=== PATIENT | female | born 1975 | race Caucasian/White ===

== ENCOUNTER 2022-06-16 07:58 | Emergency (ER) | payer BC, SELFPAY ==
--- NOTE | ~2022-06-16 | CT_ITS ---
EXAMINATION: CT ABDOMEN AND PELVIS WITHOUT CONTRAST CLINICAL INFORMATION: Flank pain. COMPARISON: None TECHNIQUE: Multidetector volumetric imaging was performed from the superior aspect of the liver through the pubic symphysis. Sagittal and coronal reformatted images were obtained on the technologist's workstation. This CT examination was performed using dose optimization techniques as appropriate, variously including the following: *Automated exposure control *Adjustment of mA and/or kV according to patient size (this includes techniques or standardized protocols for targeted exams where dose is matched to indication/reason for exam; i.e. extremities or head) *Use of iterative reconstruction technique DLP: 1162 mGy-cm FINDINGS: LUNG BASES: The lung bases appear clear, with no evidence of inflammation or nodules. LIVER, GALLBLADDER, AND BILIARY TREE: The liver appears unremarkable in size, shape, and attenuation. No focal hepatic lesion or biliary ductal dilatation is appreciated. Unremarkable appearance of the gallbladder. PANCREAS: Unremarkable SPLEEN: Unremarkable ADRENAL GLANDS: Unremarkable KIDNEYS AND URETERS: The kidneys appear unremarkable in size, shape, and attenuation. 0.3 cm, nonobstructing left upper pole renal collecting system stone. No hydronephrosis, hydroureter, or right calculi seen. No significant perinephric stranding. BLADDER: Poorly distended, therefore suboptimally evaluated. Grossly unremarkable. GASTROINTESTINAL TRACT: Status post gastric sleeve. Small bowel appears unremarkable. Scattered colonic diverticula without evidence of diverticulitis. Normal-appearing distal ileum and vermiform appendix. ABDOMINAL WALL: No significant hernia is appreciated. LYMPH NODES: No evidence of adenopathy by size criteria. VASCULAR: Unremarkable PELVIC VISCERA: Unremarkable OSSEOUS STRUCTURES: Degenerative changes of the spine. CT/CT abdomen pelvis wo IV con IMPRESSION: No acute finding.
[2022-06-16 08:12] VITALS: PULSE 95; RESP 20; TEMP 35.3; O2SAT 98; BMI 36.6
--- NOTE | 2022-06-16 09:39 | ED_ITS ---
HPI - General Adult General Chief complaint: Back Pain/Injury Stated complaint: Lower back pain/L leg pain Time Seen by Provider: 06/16/22 09:39 Source: patient Mode of arrival: ambulatory Limitations: no limitations History of Present Illness HPI narrative: Cristel is a 46 year old female who presents with two days of left sided lower back pain radiating to her anterior thigh. She states it woke her up from sleep on Thursday night and has since progressed. She denies any trauma, strenuous exercise, or prior history of occurrence. She reports taking acetaminophen without relief. She denies provoking factors and reports a gradual progression of pain until current time. She denies any saddle parethesia, loss of bowel/bladder function, or abdominal symptomatology. She states her urine has been darker, but attributes it to not drinking enough water d/t pain. Onset (ago): day(s) (2) Location: back Radiation: distal (left anterior thigh) Severity: moderate Severity scale (1-10): 4 Quality: other (shooting) Pain Consistency: constant Relieving factors: none Exacerbating factors: none Associated symptoms: denies other symptoms Treatments prior to arrival: other (acetaminophen) Related Data Previous Rx's Medication Instructions Recorded hydrocodone 5 mg-acetaminophen 325 1 tab PO Q6H #7 tabs 06/16/22 mg tablet tamsulosin 0.4 mg capsule 0.4 mg PO DAILY #7 caps 06/16/22 Allergies Allergy/AdvReac Type Severity Reaction Status Date / Time latex Allergy Unknown Verified 06/16/22 08:11 Review of Systems Constitutional: Constitutional: Reports no additional constitutional complaints, Denies chills, Denies fever(s) and Denies night sweats Eyes: Eyes: Reports no additional eye complaints, Denies blurry vision, Denies change in vision, Denies diplopia, Denies eye discharge, Denies loss of vision and Denies eye pain ENT: Denies dizziness Cardiovascular: Cardiovascular: Reports no additional cardiovascular complaints, Denies chest pain, Denies lightheadedness, Denies Loss of Consciousness and Denies dyspnea Respiratory: Respiratory: Reports no additional respiratory complaints and Denies dyspnea Gastrointestinal: Gastrointestinal: Reports no additional gastrointestinal complaints, Denies abdominal pain, Denies melena, Denies hematochezia, Denies change in bowel habits and Denies change in stool character Genitourinary: Genitourinary: Denies hematuria, Denies urinary frequency, Denies dysuria, Denies urinary incontinence, Denies urinary hesitancy and Denies urinary urgency Musculoskeletal: Musculoskeletal: Reports no additional musculoskeletal complaints, Reports back pain, Denies numbness, Reports radiating pain into limb (left anterior thigh) and Denies tingling Neurologic: Denies dizziness, Denies loss of vision, Denies numbness and Denies tingling Comments: denies saddle paresthesia, loss or bowel/bladder Psychiatric: Psychiatric: Reports no additional psychiatric complaints Endocrine: Endocrine: Reports no additional endocrine complaints Hematologic/Lymphatic: Hematologic/Lymphatic: Reports no additional hematolog ic/lymphatic complaints Allergic/Immunologic: Allergic/Immunologic: Reports no additional allergic/immunologic complaints [facility] Past Medical History Attestation statement: The following information was validated with the patient. Source: old records reviewed and nursing notes reviewed Social History Social History Advance Directives: Yes Advance Directives Information Provided: Yes Advance Directives on File: No Physical Exam ED Vital Signs: Vital Signs - 24 hr 06/16/22 08:12 Temperature 95.5 F L Pulse Rate 95 Respiratory Rate 20 Pulse Oximetry 98 Oxygen Delivery Method Room Air BMI result Body Mass Index 36.6 Const General: cooperative, no acute distress, alert and awake Nutritional Appearance: well nourished and overweight Orientation/consciousness: patient oriented x3 Limitations: no limitations HENMT Head: Yes normal to inspection and Yes atraumatic Ears: hearing grossly normal bilaterally and external ears normal General nose exam: Normal external nose present, no nasal discharge noted and no epistaxis Face and sinus: Yes normal facial exam, No abrasion and No laceration Mouth: Normal oral and palatal mucosa present, no drooling and no muffled voice Eyes General: appearance normal, both eyes and all related structures Periorbital: periorbital findings normal Eyelids: Yes eyelids normal Conjunctivae: conjunctivae normal Pupils: Equal, round and reactive pupils present EOM: EOMs intact bilaterally Neck Neck: Yes normal visual inspection, Yes full ROM and Yes no lymphadenopathy Chest Chest palpation & inspection: normal inspection of the chest Resp Effort & Inspection: normal respiratory effort and able to speak in complete sentences Auscultation: clear to auscultation bilaterally Cardio Palpation: normal PMI Rate: regular rate Rhythm: regular rhythm Heart sounds: S1 normal heart sound present and S2 normal heart sound present GI Inspection: Yes normal to inspection Palpation (GI): Soft to palpation General: Yes CVA tenderness on the left Back/Spine/Pelvis Back: CVA tenderness Thoracic/Lumbar Spine: thoracic and lumbar spine normal to inspection Skin General skin exam: no rashes or lesions noted Neuro General: patient oriented x3, gait normal, tone normal, moves all extremities and no focal motor deficits Cranial nerves: Yes Equal, round and reactive pupils present Cognition (Neuro): normal cognition Gait exam (Neuro): Normal gait present Motor exam (neuro): 5/5 motor strength present throughout and Normal motor muscle tone present throughout Sensory Exam: Normal double simultaneous stimulation for sensation Coordination: [id number] test normal Extrem General: Yes normal to inspection, Yes full ROM and Yes capillary refill normal Psych Appearance: grossly normal Mental Status: mental status grossly normal Affect: normal affect Attitude: cooperative Thought process: Normal thought process present Thought content: Normal thought content present Insight: Good insight present (Psych) Medications Administered Discontinued Medications Generic Name Dose Route Start Last Admin Trade Name Lisa PRN Reason Stop Dose Admin Hydromorphone HCl 1 mg 06/16/22 10:22 06/16/22 10:35 Hydromorphone Hcl 1 Mg/Ml Syringe IVPUSH 06/16/22 10:23 1 mg ONCE ONE Administration Protocol Ondansetron HCl 4 mg 06/16/22 10:22 06/16/22 10:35 Ondansetron Hcl 4 Mg/2 Ml Vial IVPUSH 06/16/22 10:23 4 mg ONCE ONE Administration Medical Decision Making Medical Decision Making [facility] Narrative: Patient is a 46 year old assigned female at with a history of recent gastric sleeve surgery presenting to the emergency department today with left sided flank pain. Patient's physical exam showed left sided CVA tenderness but was otherwise unremarkable. Patient's blood work was unremarkable. Patient's urine showed an acute UTI. Patient's abdomen/pelvis CT showed non-obstructing renal calculi. I spoke to the urologist automation specialist who recommended tamsulosin, pain management, and out patient follow up. I explained my physical exam findings as well as all test results to the patient and the patient's father. I answered all questions asked by the patient and the patient's father. I stressed the importance of the patient taking her medication as prescribed. I stressed the importance of the patient following up with her primary care provider and a urologist. I stressed the importance of the patient returning to the emergency department immediately if her symptoms were to worsen or if she were to develop any dizziness, shortness of breath, difficulty breathing, chest pain, blurry vision, loss of vision, nausea, vomiting, abdominal pain, fever, chills, back pain, or any other complaints. Patient verbalized agreement and understanding with this treatment plan and discharge. Differential Diagnosis Differential Diagnoses: The differential diagnosis associated with the presentation includes renal calculi, kidney stones, flank pain, UTI Consult Healthcare Provider Management of the patient was discussed with: Electron Beam Photo Mask Maker (spoke to urologist automation specialist who recommended patient be given tamsulosin and follow up outpatient) Lab Data MDM Lab Attestation statement: I reviewed the patient's lab results. 06/16/22 10:20 06/16/22 11:58 Labs: Lab Results 06/16/22 06/16/22 06/16/22 Range/Units 10:20 11:58 11:58 WBC 10.4 (4.8-10.8) X10*3/uL RBC 5.34 (4.20-5.50) X10*6/uL Hgb 16.3 H (12.0-16.0) g/dl Hct 48.1 H (37.0-47.0) % MCV 90.1 (80.0-98.0) fL MCH 30.5 (27.0-33.0) pg MCHC 33.9 (31.0-35.0) g/dl RDW 13.2 (11.0-16.0) % Plt Count 263 (160-400) X10*3/uL MPV 11.0 (9.4-12.3) fL Immature Gran % (Auto) 0.5 H (0.0-0.4) % Neut % (Auto) 84.3 H (45-73) % Lymph % (Auto) 10.0 L (20-40) % [place] % (Auto) 4.6 (2-11) % Eos % (Auto) 0.3 (0-4) % Baso % (Auto) 0.3 (0-2) % Lymph # (Auto) 1.0 L (1.2-4.9) X10*3/uL [place] # (Auto) 0.5 (0.1-1.2) X10*3/uL Eos # (Auto) 0.0 (0.0-0.4) X10*3/uL Baso # (Auto) 0.0 (0.0-0.2) X10*3/uL Abs Immat Gran (auto) 0.05 H (0.00-0.03) X10*3/uL Absolute Neuts (auto) 8.8 H (2.0-8.3) x10*3/uL Absolute Nucleated RBC 0.000 (0.0-0.012) X10*3/uL Nucleated RBC % (auto) 0.0 (0.0-0.2) /100WBC Sodium 140 140 (135-145) mmol/L Potassium 4.8 4.7 (3.3-5.1) mmol/L Chloride 108 108 (96-108) mmol/L Carbon Dioxide 24 24 (22-29) mmol/L Anion Gap 13 13 (12-20) BUN 19 H 18 H (9-16) mg/dL Creatinine 0.80 0.80 (0.5-1.4) mg/dL Estim Creat Clear Calc 119.9 119.9 Estimated GFR > 60 > 60 Random Glucose 124 H 123 H (60-115) mg/dL Calcium 9.6 9.7 (8.4-10.2) mg/dL Magnesium 2.1 (1.6-2.6) mg/dL Total Bilirubin 0.6 0.6 (0.0-1.0) mg/dL AST 22 23 (5-31) U/L ALT 41 H 42 H (0-31) U/L Alkaline Phosphatase 53 54 (39-117) U/L Total Protein 6.7 6.7 (6.5-8.0) g/dL Albumin 4.1 4.2 (3.5-5.0) g/dL Urine Color Urine Appearance Urine pH (5.0-9.0) Ur Specific [place] (1.005-1.025) Urine Protein (Neg-Trace) mg/dL Urine Glucose (UA) (Negative) mg/dL Urine Ketones (Negative) mg/dL Urine Blood (Negative) Urine Nitrite (Negative) Ur Leukocyte Esterase (Negative) Urine RBC (0-2) /HPF Urine WBC (0-5) /HPF Ur Squamous Epith Cells (0-2) /HPF Urine Bacteria (None Seen) Hyaline Casts (0-2) /LPF 06/16/22 Range/Units 15:10 WBC (4.8-10.8) X10*3/uL RBC (4.20-5.50) X10*6/uL Hgb (12.0-16.0) g/dl Hct (37.0-47.0) % MCV (80.0-98.0) fL MCH (27.0-33.0) pg MCHC (31.0-35.0) g/dl RDW (11.0-16.0) % Plt Count (160-400) X10*3/uL MPV (9.4-12.3) fL Immature Gran % (Auto) (0.0-0.4) % Neut % (Auto) (45-73) % Lymph % (Auto) (20-40) % [place] % (Auto) (2-11) % Eos % (Auto) (0-4) % Baso % (Auto) (0-2) % Lymph # (Auto) (1.2-4.9) X10*3/uL [place] # (Auto) (0.1-1.2) X10*3/uL Eos # (Auto) (0.0-0.4) X10*3/uL Baso # (Auto) (0.0-0.2) X10*3/uL Abs Immat Gran (auto) (0.00-0.03) X10*3/uL Absolute Neuts (auto) (2.0-8.3) x10*3/uL Absolute Nucleated RBC (0.0-0.012) X10*3/uL Nucleated RBC % (auto) (0.0-0.2) /100WBC Sodium (135-145) mmol/L Potassium (3.3-5.1) mmol/L Chloride (96-108) mmol/L Carbon Dioxide (22-29) mmol/L Anion Gap (12-20) BUN (9-16) mg/dL Creatinine (0.5-1.4) mg/dL Estim Creat Clear Calc Estimated GFR Random Glucose (60-115) mg/dL Calcium (8.4-10.2) mg/dL Magnesium (1.6-2.6) mg/dL Total Bilirubin (0.0-1.0) mg/dL AST (5-31) U/L ALT (0-31) U/L Alkaline Phosphatase (39-117) U/L Total Protein (6.5-8.0) g/dL Albumin (3.5-5.0) g/dL Urine Color Yellow Urine Appearance Cloudy Urine pH 6.5 (5.0-9.0) Ur Specific [place] 1.025 (1.005-1.025) Urine Protein Trace (Neg-Trace) mg/dL Urine Glucose (UA) Negative (Negative) mg/dL Urine Ketones 40 (Negative) mg/dL Urine Blood Large (3+) H (Negative) Urine Nitrite Negative (Negative) Ur Leukocyte Esterase Small (1+) H (Negative) Urine RBC >20 H (0-2) /HPF Urine WBC 11-20 H (0-5) /HPF Ur Squamous Epith Cells 0-2 (0-2) /HPF Urine Bacteria 1+ (None Seen) Hyaline Casts 0-2 (0-2) /LPF Radiology Impression Radiologist Impression: My interpretation is in agreement with the radiologist's impression of this imaging study. ------ EXAMINATION: CT ABDOMEN AND PELVIS WITHOUT CONTRAST? CLINICAL INFORMATION: Flank pain.? COMPARISON: None? TECHNIQUE: Multidetector volumetric imaging was performed from the superior aspect of the liver through the pubic symphysis. Sagittal and coronal reformatted images were obtained on the technologist's workstation.? This CT examination was performed using dose optimization techniques as appropriate, variously including the following: *Automated exposure control *Adjustment of mA and/or kV according to patient size (this includes techniques or standardized protocols for targeted exams where dose is matched to indication/reason for exam; i.e. extremities or head) *Use of iterative reconstruction technique DLP: 1162 mGy-cm FINDINGS: LUNG BASES: The lung bases appear clear, with no evidence of inflammation or nodules.? LIVER, GALLBLADDER, AND BILIARY TREE: The liver appears unremarkable in size, shape, and attenuation. No focal hepatic lesion or biliary ductal dilatation is appreciated. Unremarkable appearance of the gallbladder. PANCREAS: Unremarkable? SPLEEN: Unremarkable? ADRENAL GLANDS: Unremarkable? KIDNEYS AND URETERS: The kidneys appear unremarkable in size, shape, and attenuation. 0.3 cm, nonobstructing left upper pole renal collecting system stone. No hydronephrosis, hydroureter, or right calculi seen. No significant perinephric stranding.? BLADDER: Poorly distended, therefore suboptimally evaluated. Grossly unremarkable.? GASTROINTESTINAL TRACT: Status post gastric sleeve. Small bowel appears unremarkable. Scattered colonic diverticula without evidence of diverticulitis. Normal-appearing distal ileum and vermiform appendix.? ABDOMINAL WALL: No significant hernia is appreciated.? LYMPH NODES: No evidence of adenopathy by size criteria. VASCULAR: Unremarkable PELVIC VISCERA: Unremarkable OSSEOUS STRUCTURES: Degenerative changes of the spine.? CT/CT abdomen pelvis wo IV con IMPRESSION: ? No acute finding. Dictated By: Jung Terrazas Signed By: Electronically signed by Jagjit 06/16/22 1129 Independent Historian Clinical information obtained from an independent historian. History obtained from or confirmed by: Parent (patient's father) Critical Care Time Critical Care Time Critical Care Time: Yes Total Critical Care Time: 30 Attestation: I spent 30 minutes of Critical Care Time with this patient. This does not include time spent on separately reported billable procedures. Discharge Plan Discharge Clinical Impression: Kidney stone, UTI (urinary tract infection) Patient Disposition: Home, Self-Care Instructions: Kidney Stones (ED), Urinary Tract Infection in Women (ED) Additional Instructions: Follow up with your primary care provider and a urologist. Return to the emergency department immediately if your symptoms worsen or if you develop any dizziness, shortness of breath, difficulty breathing, chest pain, blurry vision, loss of vision, nausea, vomiting, abdominal pain, fever, chills, back pain, or any other complaints. Prescriptions: New tamsulosin 0.4 mg capsule 0.4 mg PO DAILY Qty: 7 0RF hydrocodone-acetaminophen 5-325 mg tablet 1 tab PO Q6H Qty: 7 0RF Rx Instructions: Partial Fill upon patient request. Referrals: [facility] [Provider Group] (Call to establish and follow up with a urologist. ) Tigre Krishnan MD [Primary Care Provider] - Stand Alone Forms: Work/School Release Interventions: ED Discharge Assessment Last Done: 06/16/22 16:21 Discharge Date/Time: 06/16/22 16:22 Print Language: Divehi
[2022-06-16 10:24] LABS: MANUAL DIFF FLAG NO
[2022-06-16 10:29] LABS: Basophils Percent Auto 0.3 % (0-2); Eosinophils Percent Auto 0.3 % (0-4); Hematocrit 48.1 % (37.0-47.0); Hemoglobin 16.3 g/dl (12.0-16.0); Imm Gran Abs Auto 0.05 X10*3/uL (0.00-0.03); Imm Gran Pct Auto 0.5 % (0.0-0.4); Mean Corpuscular HGB Conc 33.9 g/dl (31.0-35.0); Mean Corpuscular Hemoglobin 30.5 pg (27.0-33.0); Mean Corpuscular Volume 90.1 fL (80.0-98.0); Monocytes Absolute Auto 0.5 X10*3/uL (0.1-1.2); Monocytes Percent Auto 4.6 % (2-11); Neutrophils Absolute Auto 8.8 x10*3/uL (2.0-8.3); Neutrophils Percent Auto 84.3 % (45-73); Platelet Count 263 X10*3/uL (160-400); Red Blood Count 5.34 X10*6/uL (4.20-5.50); Red Cell Distribution Width 13.2 % (11.0-16.0); White Blood Count 10.4 X10*3/uL (4.8-10.8)
[2022-06-16] MEDS: HYDROmorphone HCl 1 MG/ML SYRINGE IVPUSH (10:35)
[2022-06-16] MEDS: ondansetron HCL 4 MG/2 ML VIAL IVPUSH (10:35)
--- NOTE | 2022-06-16 11:43 | PC.NURSE ---
call to phlebotomy to redraw labs- this nurse attempted in addition to the pharmacy technician assistant. per research laboratory specialist, John will send someone from the lab
[2022-06-16 12:31] LABS: Alanine Aminotransferase 42 U/L (0-31); Albumin Level 4.2 g/dL (3.5-5.0); Alkaline Phosphatase 54 U/L (39-117); Anion Gap 13 (12-20); Aspartate Amino Transferase 23 U/L (5-31); Bilirubin Total 0.6 mg/dL (0.0-1.0); Blood Urea Nitrogen 18 mg/dL (9-16); Calcium 9.7 mg/dL (8.4-10.2); Carbon Dioxide 24 mmol/L (22-29); Chloride 108 mmol/L (96-108); Creatinine Clr Calc Pharmacy 119.9; Estimated Glomerular Filt Rate > 60; Glucose Random 123 mg/dL (60-115); Potassium 4.7 mmol/L (3.3-5.1); Sodium 140 mmol/L (135-145); Total Protein 6.7 g/dL (6.5-8.0)
[2022-06-16 12:32] LABS: Alanine Aminotransferase 41 U/L (0-31); Albumin Level 4.1 g/dL (3.5-5.0); Alkaline Phosphatase 53 U/L (39-117); Anion Gap 13 (12-20); Aspartate Amino Transferase 22 U/L (5-31); Bilirubin Total 0.6 mg/dL (0.0-1.0); Blood Urea Nitrogen 19 mg/dL (9-16); Calcium 9.6 mg/dL (8.4-10.2); Carbon Dioxide 24 mmol/L (22-29); Chloride 108 mmol/L (96-108); Creatinine Clr Calc Pharmacy 119.9; Estimated Glomerular Filt Rate > 60; Glucose Random 124 mg/dL (60-115); Magnesium 2.1 mg/dL (1.6-2.6); Potassium 4.8 mmol/L (3.3-5.1); Sodium 140 mmol/L (135-145); Total Protein 6.7 g/dL (6.5-8.0)
[2022-06-16 15:20] LABS: Appearance Urine Cloudy; Color Urine Yellow; Glucose Urine UA Negative (Negative); Leukocyte Esterase Urine Small (1+) (Negative); Nitrite Urine Negative (Negative); PH 6.5 (5.0-9.0); Specific Gravity - Urine 1.025 (1.005-1.025); UMIC TRIGGER UACC YES; Urine Blood Large (3+) (Negative); Urine Ketones 40 mg/dL (Negative); Urine Protein Trace mg/dL (Neg-Trace)
[2022-06-16 15:44] LABS: Bacteria Urine 1+ (None Seen); Hyaline Casts Urine 0-2 /LPF (0-2); RBC Urine >20 /HPF (0-2); Squamous Epithelial Cell Urine 0-2 /HPF (0-2); UACC Culture Trigger YES
== END 2022-06-16 16:22 | disposition home or self-care (01) ==
PROVIDERS: Physician Assistant Medical; Emergency Provider Emergency Medicine; PCP Internal Medicine
DX: N20.0 Calculus of kidney (principal); N39.0 Urinary tract infection, site not specified; Z90.3 Acquired absence of stomach [part of]
CPT/HCPCS: 36415; 74176; 80053; 81001; 83735; 85025; 87086; 96374; 96375; 99283; 99284; J1170; J2405

== ENCOUNTER 2022-12-13 03:16 | Emergency (ER) | payer BC, SELFPAY ==
[2022-12-13 03:22] VITALS: BP 148/92; PULSE 96; O2SAT 99
[2022-12-13 03:41] VITALS: BP 118/74; BP 148/72; PULSE 87; PULSE 92; RESP 18; TEMP 37.1; O2SAT 97; O2SAT 99; BMI 30.7
--- NOTE | 2022-12-13 05:15 | PC.NURSE ---
pt was told not to leave the room due to what he might have could be contagious. pt has been leaving the hospital for a smoke.
--- NOTE | 2022-12-13 07:16 | ED_ITS ---
HPI - Alcohol General Chief Complaint: ETOH/Substance Use Stated Complaint: ETOH/Anxiety Time Seen by Provider: 12/13/22 06:54 Source: patient and EMS Mode of arrival: ambulatory Limitations: no limitations History of Present Illness HPI narrative: 47 yo female here after being pulled over by PD. Patient reports after she was pulled over she started to feel quite anxious and was transferred here. She admits to drinking 4 mixed drinks. She denies additional substances. She does not drink daily. She reports since having the gastric sleeve <1 yr ago she has less tolerance for alcohol and is trying to figure it out. She denies SI/HI. She denies anxiety now. No physical complaints. She would like to go home and has a way home. Related Data Previous Rx's Medication Instructions Recorded hydrocodone 5 mg-acetaminophen 325 1 tab PO Q6H #7 tabs 06/16/22 mg tablet tamsulosin 0.4 mg capsule 0.4 mg PO DAILY #7 caps 06/16/22 Allergies Allergy/AdvReac Type Severity Reaction Status Date / Time latex Allergy Unknown Verified 06/16/22 08:11 Review of Systems 2 Review of Systems: Yes all other systems are reviewed and are negative Constitutional: Constitutional: Reports no additional constitutional complaints, Denies body ache(s), Denies chills, Denies fever(s), Denies headache(s) and Denies weakness Eyes: Eyes: Reports no additional eye complaints and Denies change in vision ENT: Reports system reviewed and no additional complaints, except as documented, Denies dizziness, Denies headache(s), Denies nasal congestion, Denies nasal discharge and Denies neck pain Cardiovascular: Cardiovascular: Reports no additional cardiovascular c omplaints, Denies chest pain, Denies leg edema and Denies dyspnea Respiratory: Respiratory: Reports no additional respiratory complaints, Denies cough and Denies dyspnea Gastrointestinal: Gastrointestinal: Reports no additional gastrointestinal complaints, Denies abdominal pain, Denies diarrhea, Denies nausea and Denies vomiting Genitourinary: Genitourinary: Reports no additional female genitourinary complaints and Denies urinary incontinence Musculoskeletal: Musculoskeletal: Reports no additional musculoskeletal complaints, Denies back pain, Denies arthralgias, Denies joint swelling, Denies neck pain, Denies numbness and Denies tingling Integumentary/Breasts: Skin/Breast: Reports system reviewed and no additional complaints, except as docu and Denies rash Neurologic: Reports system reviewed and no additional complaints, except as documented, Denies dizziness, Denies headache(s), Denies numbness, Denies tingling and Denies weakness Psychiatric: Psychiatric: Reports anxiety, Denies homicidal ideation and Denies suicidal ideation [facility] Past Medical History Attestation statement: The following information was validated with the patient. Source: old records reviewed and nursing notes reviewed Social History Social History Alcohol intake: current Smoked in Last 30 Days: No Use of substances other than those prescribed or required for medical reasons: No Advance Directives: No Advance Directives Information Provided: No Patient : No Physical Exam ED Vital Signs: Vital Signs - 24 hr 12/13/22 03:41 12/13/22 07:31 Temperature 98.7 F Pulse Rate 87 93 Respiratory Rate 18 16 Blood Pressure 118/74 143/82 H Pulse Oximetry 97 98 Oxygen Delivery Method Room Air Room Air BMI result Body Mass Index 30.7 Const General: cooperative, healthy appearing, comfortable and no acute distress Orientation/consciousness: patient oriented x3 Limitations: no limitations HENMT Head: Yes normal to inspection Ears: hearing grossly normal bilaterally Eyes General: appearance normal, both eyes and all related structures Pupils: Equal, round and reactive pupils present Neck Neck: Yes normal visual inspection Chest Chest palpation & inspection: normal inspection of the chest Resp Effort & Inspection: normal respiratory effort Cardio Peripheral pulses: Peripheral pulses 2+ throughout GI Inspection: Yes normal to inspection Palpation (GI): Soft to palpation and nontender Skin General skin exam: no rashes or lesions noted Neuro General: patient oriented x3 and moves all extremities Cranial nerves: Yes Equal, round and reactive pupils present Cognition (Neuro): normal cognition Gait exam (Neuro): Normal gait present Extrem General: Yes normal to inspection Medical Decision Making Medical Decision Making MDM Narrative: 47 yo female here with complaints of feeling anxious after being pulled over by PD several hours ago, admits to drinking several alcoholic beverages last night. No SI/HI No physical complaints. No concern for acute ingestion or trauma Patient reports anxiety is improved since being here. VSS She has a sober ride who can come pick her up. Will discharge home Differential Diagnosis Differential Diagnoses: The differential diagnosis associated with the presentation includes alcoholic intoxication, anxiety Independent Historian Clinical information obtained from an independent historian. History obtained from or confirmed by: EMS Discharge Plan Discharge Clinical Impression: Alcohol use, Anxiety Patient Disposition: Home, Self-Care Instructions: Anxiety (ED) Prescriptions: No Action tamsulosin 0.4 mg capsule 0.4 mg PO DAILY Qty: 7 0RF hydrocodone-acetaminophen 5-325 mg tablet 1 tab PO Q6H Qty: 7 0RF Rx Instructions: Partial Fill upon patient request. Referrals: Tigre Krishnan MD [Primary Care Provider] - 1 week (as needed) Interventions: ED Discharge Assessment Last Done: 12/13/22 07:32 Discharge Date/Time: 12/13/22 07:33
[2022-12-13 07:31] VITALS: BP 143/82; PULSE 93; RESP 16; O2SAT 98
--- NOTE | 2022-12-13 07:32 | PC.NURSE ---
PT ALERT AND ORIENTED, TALKING ON HER CELLPHONE, STEADY GAIT TO THE BATHROOM TOLERATING PO FLUID INTAKE.
== END 2022-12-13 07:33 | disposition home or self-care (01) ==
PROVIDERS: Emergency Provider Emergency Medicine; PCP Internal Medicine
DX: F10.90 Alcohol use, unspecified, uncomplicated (principal); Y90.9 Presence of alcohol in blood, level not specified; F41.9 Anxiety disorder, unspecified
CPT/HCPCS: 99283; 99284